=== PATIENT | male | born 1995 | race Caucasian/White ===

== ENCOUNTER 2019-06-13 22:50 | Emergency (ER) | payer OTHER ==
[~2019-06-13] VITALS: Ht 170.2 cm; Wt 103.6 kg
[2019-06-13 23:57] VITALS: BP 136/89
--- NOTE | 2019-06-13 23:58 | NUR ---
FIRST CONTACT WITH PT. PT IS WORSE WITH PALPATION AND DEEP INSPIRATION.PT REPORTS CP STARTING THIS AM. PT DENIES N/V/D/ADAMS AT THIS TIME. PT'S AOX4. RESPS EVEN AND UNLABORED. ALL MONITORS IN PLACE. CALL LIGHT WITHIN REACH.
[2019-06-14] MEDS ORDERED: MAALOX/HYOSCYAMINE/LIDOCAINE 45 ML BTL ONE (00:13)
[2019-06-14] MEDS ORDERED: FAMOTIDINE 20 MG TABLET ONE (00:13)
--- NOTE | 2019-06-14 00:17 | NUR ---
PT TO XRAY NOW.
--- NOTE | 2019-06-14 00:24 | NUR ---
PT MEDICATED PER EMAR. PT TOLERATED WELL.
[2019-06-14] MEDS ORDERED: FAMOTIDINE 20 MG TABLET PO ONE (00:30)
[2019-06-14] MEDS ORDERED: PLEASE ENTER ALLERGIES MC SCH (00:30)
[2019-06-14] MEDS ORDERED: MAALOX/HYOSCYAMINE/LIDOCAINE 45 ML BTL PO ONE (00:30)
== END 2019-06-14 00:54 | disposition home or self-care (01) ==
LOC: ED 06-14 00:19
DX: R07.89 Other chest pain (principal)
CPT/HCPCS: 71046; 93005; 99283

== ENCOUNTER 2020-06-17 00:19 | Emergency (ER) | payer MEDICAID, OTHER ==
[2020-06-17 00:21] VITALS: BP 146/82
[2020-06-17] MEDS ORDERED: MAALOX/HYOSCYAMINE/LIDOCAINE 45 ML BTL ONE (00:27)
[2020-06-17] MEDS ORDERED: FAMOTIDINE 20 MG TABLET ONE (00:27)
[2020-06-17] MEDS ORDERED: FAMOTIDINE 20 MG TABLET PO ONE (00:30)
[2020-06-17] MEDS ORDERED: MAALOX/HYOSCYAMINE/LIDOCAINE 45 ML BTL PO ONE (00:30)
[2020-06-17 00:36] LABS: BASOPHILS # (AUTO) 0.06 x10^3/uL (0-0.1); BASOPHILS % (AUTO) 1 % (0-1); EOSINOPHILS # (AUTO) 0.12 x10^3/uL (0-0.4); EOSINOPHILS % (AUTO) 1 % (1-7); LYMPHOCYTES # (AUTO) 3.25 x10^3/uL (1-3.4); LYMPHOCYTES % (AUTO) 37 % (22-44); MD NO; MEAN CORPUSCULAR HEMOGLOBIN 29.4 pg (27.5-34.5); MEAN CORPUSCULAR HGB CONC 33.8 g/dL (33.2-36.2); MEAN CORPUSCULAR VOLUME 86.9 fL (81-97); MEAN PLATELET VOLUME 8.5 fL (7.4-10.4); MONOCYTES # (AUTO) 0.79 x10^3/uL (0.2-0.8); MONOCYTES % (AUTO) 9 % (2-9); NEUTROPHILS # (AUTO) 4.69 x10^3/uL (1.8-6.8); NEUTROPHILS % (AUTO) 53 % (42-75); PLATELET COUNT 328 x10^3/uL (130-400); RED BLOOD COUNT 5.47 x10^6/uL (4.38-5.82); RED CELL DISTRIBUTION WIDTH 14.6 % (9.4-14.8)
[2020-06-17 00:48] LABS: ALANINE AMINOTRANSFERASE 51 U/L (12-78); ANION GAP 9 mmol/L (5-15); CALCIUM 8.5 mg/dL (8.5-10.1); CHLORIDE 110 mmol/L (98-107); CREATININE 0.84 mg/dL (0.7-1.3)
[2020-06-17 00:51] LABS: ALKALINE PHOSPHATASE 91 U/L (45-117); BILIRUBIN,TOTAL 0.3 mg/dL (0.2-1.0); TOTAL PROTEIN 7.9 g/dL (6.4-8.2)
== END 2020-06-17 01:31 | disposition home or self-care (01) ==
LOC: ED 01:25
DX: K29.20 Alcoholic gastritis without bleeding (principal); F10.10 Alcohol abuse, uncomplicated; R10.13 Epigastric pain; Y90.9 Presence of alcohol in blood, level not specified
CPT/HCPCS: 12011; 36415; 80053; 83690; 85025; 99283; 99284

== ENCOUNTER 2020-07-15 13:36 | Emergency (ER) | payer MEDICAID, OTHER ==
[~2020-07-15] VITALS: Ht 172.7 cm; Wt 108.5 kg
[2020-07-15 13:38] VITALS: BP 135/98
--- NOTE | 2020-07-15 14:20 | NUR ---
to contact the katja
== END 2020-07-15 15:06 | disposition home or self-care (01) ==
LOC: ED 13:51
DX: G89.29 Other chronic pain (principal); M79.641 Pain in right hand; F17.200 Nicotine dependence, unspecified, uncomplicated
CPT/HCPCS: 99281

== ENCOUNTER 2020-07-31 14:45 | Emergency (ER) | payer MEDICAID ==
[~2020-07-31] VITALS: Ht 172.7 cm; Wt 110.5 kg
[2020-07-31 14:50] VITALS: BP 136/93
--- NOTE | 2020-07-31 15:02 | NUR ---
Pt here for right toe cut that has callused over. Pt reports that he used bacitracin and wound cleanser to keep it clean.
--- NOTE | 2020-07-31 15:44 | NUR ---
Patient/Caregiver given discharge instructions and they have confirmed that they understand the instructions. Patient ambulatory with steady gait.
== END 2020-07-31 15:46 | disposition home or self-care (01) ==
LOC: ED 14:50
DX: T81.89XA Other complications of procedures, not elsewhere classified, initial encounter (principal); M79.671 Pain in right foot
CPT/HCPCS: 99281